=== PATIENT | male | born 2000 | race Caucasian/White ===

== ENCOUNTER 2021-09-12 01:17 | Emergency (ER) | payer BC ==
[2021-09-12 02:02] LABS: HEMOGLOBIN 16.7 gm/dl (14.0-17.5); RED BLOOD COUNT 5.88 M/UL (4.20-5.50); WHITE BLOOD COUNT 7.5 K/UL (4.5-11.0)
[2021-09-12 02:21] LABS: BUN/CREATININE RATIO 19 (0-10)
== END 2021-09-12 05:53 | disposition home or self-care (01) ==
LOC: ER1 01:17
PROVIDERS: Family Medicine
DX: U07.1 COVID-19 (principal); J02.0 Streptococcal pharyngitis; R00.0 Tachycardia, unspecified; R10.9 Unspecified abdominal pain; Z88.8 Allergy status to other drugs, medicaments and biological substances
CPT/HCPCS: 71045; 80048; 80076; 81001; 82550; 82553; 83605; 83690; 83874; 84484; 85025; 85379; 87081; 87880; 93005; 96372; 99285; J0561; U0002